=== PATIENT | female | born 1945 | race Caucasian/White ===

== ENCOUNTER 2018-04-24 19:14 | Observation (INO) | payer OTHER ==
[2018-04-24] MEDS: DEXTROSE/SALINE 0.45/KCL 20MEQ 1,000 ML/1,000 ML SOL IV SCH (23:56)
[2018-04-25] MEDS: ENOXAPARIN 40 MG SOL SC SCH ×2 (00:02→10:18)
[2018-04-25] MEDS: KETOROLAC TROMETHAMINE 30 MG/ML SOL IV PRN ×2 (00:12→10:22)
[2018-04-25 07:16] LABS: BASOPHILS % (AUTO) 1 % (0-3); EOSINOPHILS % (AUTO) 2 % (0-9); HEMATOCRIT 38 % (35-47); LYMPHOCYTES % (AUTO) 20.5 % (10-50); MEAN CORPUSCULAR HEMOGLOBIN 30.4 pg (27.0-32.0); MEAN CORPUSCULAR HGB CONC 31.8 gm/dl (32.0-36.0); MEAN CORPUSCULAR VOLUME 96 fL (81-99); NEUTROPHILS % (AUTO) 68.8 % (37-80)
[2018-04-25 07:22] LABS: ALBUMIN 2.8 gm/dl (3.4-5.0); BILIRUBIN,TOTAL 0.7 mg/dl (0.2-1.0); CARBON DIOXIDE 27.7 mEq/L (21-32); CREATININE 0.64 mg/dl (0.60-1.00); POTASSIUM 4.1 mMol/L (3.5-5.1); TOTAL PROTEIN 5.6 gm/dl (6.4-8.2)
[2018-04-25 07:31] LABS: AMPHETAMINES NEGATIVE (NEGATIVE); BARBITUATES NEGATIVE (NEGATIVE); BENZODIAZEPINES NEGATIVE (NEGATIVE); CANNABINOL(THC) NEGATIVE (NEGATIVE); COCAINE(COC) NEGATIVE (NEGATIVE); METHADONE NEGATIVE (NEGATIVE); METHAMPHETAMINES NEGATIVE (NEGATIVE); OPIATES(OPI) NEGATIVE (NEGATIVE); OXYCODONE(OXY) NEGATIVE (NEGATIVE); PROPOXYPHENE(PPX) NEGATIVE (NEGATIVE); TRICYCLIC ANTIDEPRESSANTS NEGATIVE (NEGATIVE)
[2018-04-25 07:39] VITALS: BP 124/71; PULSE 76; RESP 16; TEMP 98.5; O2SAT 99
[2018-04-25] MEDS ORDERED: FOLIC ACID 1 MG TAB PO SCH (09:00)
[2018-04-25] MEDS ORDERED: PREDNISONE 10 MG TAB PO SCH (09:00)
[2018-04-25] MEDS: DEXTROSE/SALINE 0.45/KCL 20MEQ 1,000 ML/1,000 ML SOL IV SCH (09:46)
== END 2018-04-25 11:10 | disposition short-term general hospital (02) | DRG 536 ==
LOC: ED 19:14 → ACUTE CARE 21:43
PROVIDERS: ADMIT Family Medicine; ATTEND Family Medicine
DX: S72.012A Unspecified intracapsular fracture of left femur, initial encounter for closed fracture (principal); W18.09XA Striking against other object with subsequent fall, initial encounter
CPT/HCPCS: 36415; 71045; 72192; 73502; 80053; 80305; 85025; 93005; 99219; 99283; J1650; J1885; A9270-GY

== ENCOUNTER 2018-05-23 10:02 | Outpatient (CLI) | payer OTHER, MEDICARE ==
[2018-04-25 07:39] VITALS: O2SAT 99
== END 2018-05-23 10:03 | disposition home or self-care (01) | DRG 561 ==
LOC: CONVCARE 10:02
PROVIDERS: ATTEND Orthopaedic Surgery
DX: Z47.89 Encounter for other orthopedic aftercare (principal); Z98.890 Other specified postprocedural states
CPT/HCPCS: 73501

== ENCOUNTER 2018-06-06 08:47 | Outpatient (CLI) | payer OTHER, MEDICARE | END 2018-06-06 08:48 | disposition home or self-care (01) | LOC: CONVCARE 08:48 ==

== ENCOUNTER 2018-07-04 13:22 | Outpatient (CLI) | payer OTHER ==
[2018-04-25 07:39] VITALS: O2SAT 99
== END 2018-07-04 13:23 | disposition home or self-care (01) | DRG 561 ==
LOC: RAD 13:22
PROVIDERS: ATTEND Orthopaedic Surgery
DX: S72.002D Fracture of unspecified part of neck of left femur, subsequent encounter for closed fracture with routine healing (principal); Z98.890 Other specified postprocedural states
CPT/HCPCS: 73501